=== PATIENT | female | born 1990 | race Caucasian/White ===

== ENCOUNTER → 2019-07-14 14:16 | Outpatient (CLI) | payer OTHER, SELFPAY ==
[2019-07-14 15:43] LABS: Absolute Lymphocyte Count 1.22 X10^3/uL (0.83-4.51); Absolute Neutrophil Count 4.3 X10^3/uL (2.0-7.7); Basophil# 0.03 X10^3/uL; Basophil% 0.5 % (0-1); Eosinophil# 0.04 X10^3/uL; Eosinophils% 0.7 % (0-5); Hematocrit 40.7 % (37-47); Hemoglobin 13.3 g/dL (12.0-15.0); Lymphocyte # 1.22 X10^3/ul (4.0); Lymphocyte % 20.1 % (19-41); Mean Corp Hgb Conc 32.7 g/dL (32-36); Mean Corpuscular Hgb 29.9 pg (27.0-32.0); Mean Corpuscular Volume 91.5 fL (81-99); Mean Platelet Vol. 8.9 fl (6.2-12.0); Monocyte# 0.39 X10^3/uL; Monocyte% 6.4 % (0-10); NRBC Flagged by Analyzer 0 % (0-5); Neutrophil # 4.34 X10^3/uL (2.7-7.7); Neutrophil % 71.6 % (47-70); Platelet Count 289 K/mm3 (150-450); RBC Distribution Width CV 12.1 % (11.6-14.6); RBC Distribution Width SD 40.3 fl (35.1-43.9); Red Blood Count 4.45 M/mm3 (4.2-5.4); White Blood Count 6.1 K/mm3 (4.4-11.0)
[2019-07-14 16:19] LABS: ALB/GLOB Ratio 1.1 RATIO (0.9-2.4); AST(SGOT) 12 U/L (15-37); Alanine Aminotransfer ALT/SGPT 15 U/L (13-56); Alkaline Phosphatase 59 U/L (45-117); Anion Gap 6 (5-15); BUN 13 mg/dL (7-18); BUN/Creat Ratio 15.3 RATIO (10-20); Calcium,Total 9.2 mg/dL (8.5-10.1); Chloride 107 mmol/L (98-107); Creatinine, Serum 0.85 mg/dL (0.55-1.02); EST Glomerular Filtration Rate 85 mL/min (>60); Est Glom Filt Rate - Afr Amer 103 mL/min (>60); Globulin 3.5 g/dL (2.2-4.2); Glucose 101 mg/dL (74-106); Potassium 3.6 mmol/L (3.5-5.1); Protein, Total 7.5 g/dL (6.4-8.2); Sodium Level 142 mmol/L (136-145)
== END ==
PROVIDERS: Family Provider Family Medicine; PCP Family Medicine; Referring Provider Family Medicine; Visit Provider Family Medicine
DX: Z01.818 Encounter for other preprocedural examination (principal)
CPT/HCPCS: 36415; 80053; 85025

== ENCOUNTER 2019-07-30 11:29 | Day surgery (SDC) | payer OTHER, SELFPAY ==
[2019-07-30 12:02] VITALS: BP 122/71; PULSE 101; RESP 16; TEMP 37.8; O2SAT 100; BMI 24.3
[2019-07-30] MEDS: Lactated Ringers 1,000 ML 100 ML IV ×2 (12:05→13:45)
[2019-07-30 12:07] LABS: Internal QC Validated? YES +Cl - CLEAR BKGD; Pregnancy, Urine Negative Negative
[2019-07-30] MEDS: Cefazolin 2 GM in 0.9% Normal Saline 100 ML IV (12:21)
--- NOTE | 2019-07-30 13:00 | BUN_PTH ---
PATIENT: TASIA ALONZO LOC: [facility] [place] U#:[id number] AGE/SX: 28/F ROOM: RE07/30/[address]: Dr. Erick La DPM : 1990 BED: DIS: 07/30/2019 SPEC #: [id number] RECD: 07/30/19 15:02 STATUS: JESUS ALBERTO SINGH #: [id number] JAY: 07/30/19 13:[address]: Erick La DEPT: SURGICAL PATHOLOGY RECD BY: Keenan Aranda ENTERED: 08/02/19 11:02 SP TYPE: BUNION OTHR DR: MD Dr. Tashi Puckett MD Tissues: Bony tissue, NOS Procedures: Decalcification bone/plaque Surgery Specimen Level III HEADER OPERATION: Bunionectomy first metatarsal cuneiform Lapidus arthrodesis PRE-OP DIAGNOSIS: Hallus valgus bunion TISSUE SUBMITTED: Left foot bunion MICROSCOPIC DIAGNOSIS Left foot bunion: A piece of bone with reactive changes, clinically bunion. SJ:aimee 08/05/19 MICROSCOPIC DESCRIPTION Slides are reviewed. GROSS DESCRIPTION Received in fixative is one container labeled with the patient's name and designated left foot bunion. The specimen consists of a discoid fragment of arana-yellow bone measuring 2.2 x 1.7 x 0.3 cm. The specimen is submitted in its entirety in one cassette after decalcification. / AM:aimee 08/02/19 TC:5 CPT: 49782,30877
--- NOTE | 2019-07-30 13:00 | RAD_ITS ---
STUDY: X-RAY - LEFT FOOT CLINICAL: Female, 28 years old. BUNIONECTOMY, 1ST METATARSAL CUNEIFORM LAPIDUS ARTHRODESIS TECHNIQUE: 3 intraoperative fluoroscopic view(s) of the foot. COMPARISON: None. FINDINGS: 3 images of the midfoot shows cortical plate-screw construct of the proximal one third first metatarsal bone and the first cuneiform with several of the long threaded screws crossing the first cuneiform and terminating within the second cuneiform. A small portion of the cortex and medullary space on the medial side of the head of the first metatarsal bone has been surgically resected. RAD/Foot min 3 Views IMPRESSION: Partial surgical resection of the medial side first metatarsal bone Electronically Signed: Alex Welsh MD at 17:35 EST , Service support ,
[2019-07-30] MEDS: Bupivacaine Mpf 0.5% 30 ML VIAL (14:19)
--- NOTE | 2019-07-30 14:30 | DCINST_ITS ---
Discharge Diet: Light diet - advance as tolerated Discharge Activity: May not drive while taking narcotic pain medications., Use Crutches Weight Bearing Status: No weight bearing - No weightbearing on left foot Keep extremity elevated above heart level: Left Leg - Keep left foot elevated for at least 50 minutes of every hour Call your doctor if your incision/area has: Continuous Slow Oozing, Sudden Increased Bleeding, Foul Smelling Discharge Call your doctor if you observe: Fever of 101 or Higher, Shortness of breath, Chest pain, Increased palpitations (irregular heartbeat), Calf discomfort, Uncontrolled pain Cleanse incision/area with: Do not get Incision Wet, Keep Dressing Clean & Dry Allergies/Adverse Reactions: Allergies No Known Allergies Allergy (Verified 07/23/19 13:09) Medications to take at Discharge Ibuprofen 400 mg PO Q6H PRN PRN #40 tab 07/30/19 Oxycodone HCl/Acetaminophen [Percocet 5-325 mg Tablet] 1 - 2 each PO Q6H PRN PRN 3 Days #30 tablet 07/30/19 The following prescriptions were given: Ibuprofen 400 mg PO Q6H PRN PRN #40 tab PRN Reason: Pain Score 1-10/10 Transmission Status: Pending to [facility] Oxycodone HCl/Acetaminophen [Percocet 5-325 mg Tablet] 1 - 2 each PO Q6H PRN PRN 3 Days #30 tablet PRN Reason: Pain Score 1-10/10 Transmission Status: Received by [facility] Primary Care Physician: Doug Duarte MD [Primary Care Provider] - Test Results: Test results from this visit will be discussed in further detail at your follow- up appointment, if applicable. Please Follow Up With: Erick La DPM - Call Dr. La if needed: [phone] (cell) When: next week, sooner if needed
[2019-07-30 14:31] VITALS: BP 122/71; BP 130/64; PULSE 130; RESP 18; TEMP 37.1; O2SAT 99
--- NOTE | 2019-07-30 14:31 | OP.PCM_ITS ---
Report of Operation Date of Procedure: 07/30/19 Pre-Operative Diagnosis: Hallux valgus bunion left foot Post-Operative Diagnosis: Same Surgery/Procedure Performed:: 1st metatarsal cuneiform arthodesis bunionectomy, left foot manager action: yes - Dr. Bridger Harrison Type of Anesthesia:: General, Local Specimen's removed: Bunion from left foot sent to pathology Estimated Blood Loss (mL): 1mL Description of Procedure: Indications: This is a 28 year old female with right hallux valgus bunion deformity, 1st and 2nd toes rubbing and causing callus formation. She relates she is not able to get into the [employer] due to this. She elected to under go surgical intervention - 1st metatarsal cuneiform lapidus arthrodesis bunionectomy. This was discussed with her in great detail, reviewed the procedures, as well as the rationale of the procedures with her in great detail. We discussed and reviewed the possible benefits vs risks/potential complication s. The estimated healing/recovery time and protocol were reviewed with her in detail. Reviewed the goals and the expectations. He expressed understanding and agreement and elected to proceed forward with surgical intervention as noted above. The consent forms were reviewed with her and she freely signed them. All of her questions were answered. No guarantees were given or implied. She was cleared from medical standpoint to proceed with surgery. Operative Procedure: The patient was brought back into the operating room and was placed on the operating table in the supine position. Patient was carefully secured to the operating room table with a safety belt around her waist. A time out was performed and the patient was properly identified and the surgical plan was confirmed. The patient received IV antibiotic prophylaxis - 2g of Ancef. The patient received general anesthesia per the anesthesiologist. A well padded pneumatic tourniquet was applied around her left ankle. The left foot was s crubbed, prepped, and draped in the usual aseptic fashion. Attention was directed to the left foot, there was noted to be significant hallux valgus bunion w/ instability of the 1st ray, with 1st toe deviated into 2nd toe with some callus formation to the medial 2nd toe. The left foot was elevated for 3 minutes and the left ankle pneumatic tourniquet was inflated to 250mmHg. A total of 10 mL of 5% Bupivacaine plain was given as a lock block around the surgical site. A linear longitudinal skin incision was medially along the medial 1st metatarsal cuneiform joint as well as overlying the 1st metatarsal phalangeal joint. This was done using a 15 blade. Careful dissection was completed down to the capsule of the 1st metatarsal cuneiform joint, and it was incised using a 15 blade and partially reflected exposing the joint surfaces. All cartilage from the 1st metatarsal cuneiform joint surfaces (posterior aspect of the base of the 1st metatarsal and the anterior aspect of the medial cuneiform) were debrided away and was removed down to bleeding bone. This was done with a curette as well as a powered rasp and saw, being sure not to cause osteonecrosis. The site was flushed out with copious amounts of normal saline solution. The surfaces were fenestrated using a powered drill to aid fusion. There was noted to be significant contracture of the lateral 1st metatarsal phalangeal joint as well as the adductor hallucis tendon which was preventing proper reduction of the deformity. Therefore a small skin incision was overlying the dorsal lateral 1st metatarsal phalangeal joint. Dissection was completed down to the lateral capsule and adductor hallucis tendon which were released using a 15 blade. The 1st metatarsal was reduced into normal position. The site was fixated use rigid open reduction internal fixation, using 1 Arthrex plantar plate, using a total of 4 locking screws and 1 nonlocking compression screw across the fusion site. There was very good compression and bone to bone contract with the prepped fusion site, in good alignment. The fusion site was rigid and very stable. This was checked and confirmed with intraoperative fluoroscopy. There was noted to be a residual medial and dorsal eminence to the 1st metatarsal head. Careful dissection was completed down to the 1st metatarsal phalangeal joint capsule and it was incised, it was partially reflected. The med ial eminence was resected using a powered sagittal saw, the resected bone was sent to pathology. There was very tight contracture adductor hallucis tendon which was preventing full reduction of deformity. Therefore the adductor hallucis cojoined tendon was released using a 15 blade. The hallux was now in rectus position. There was was now normal range of motion to the 1st metatarsal phalangeal joint. There was smooth normal gliding range of motion of the 1st metatarsal phalangeal joint at this time with normal alignment. The joint was in good alignment. The surgical site was flushed out with copious amounts of normal saline solution. Tissues were healthy and viable at this time. The subcutaneous tissue layers were reapproximated using 3-0 Vicryl and the skin was reapproximated using 4-0 Monocryl. Cavailon was painted to the edges of the sutured skin incision and steristrips were applied across the sutured skin incision. An additional 17 mL of a 0.5% Bupivacaine plain was given as a lock block around the surgical site for further pain control. The pneumatic tourniquet was deflated at 100 minutes, there was immediate return of warmth and perfusion to the foot and to all toes on the foot with normal temperature gradient and CFT < 2 seconds to all toes once the tourniquet was deflated. A dressing was applied which consisted of Betadine soaked adaptic, 4x4 gauze, Kerlix, and an del bandage. Of note, all vital structures including all vital neurovascular and tendon structures were properly identified, protected, and retracted as necessary throughout the above operative procedures. The anterior tibial tendon was left intact. The patient tolerated the above operative procedures well at the anesthesia well with no complication. The patient was transported from the operating room to the recovery room with vital signs stable and in good condition. Post operative orders were placed. Post operative instructions were reviewed with her and her family who was with her. No weightbearing left foot, keep foot elevated for at least 50 minutes of every hour, keep dressing and splint clean, dry and intact. Prescription for Percocet and Ibuprofen given. Post operative xrays were obtained in the recovery room (DP, Oblique, and lateral foot) - there was again noted to be 1st metatarsal cuneiform arthrodesis bunionectomy in good position, with joint surfaces in good alignment and good bone to bone contract with intact hardware; no acute problems or complications seen. Patient to follow up with me in office within 1 week, sooner if needed. Grafts/Implants Used: Arthrex plantar lapidus plate and screws - Complications None
[2019-07-30 14:45] VITALS: BP 120/74; BP 122/71; PULSE 115; RESP 18; O2SAT 100
--- NOTE | 2019-07-30 14:49 | RAD_ITS ---
STUDY: X-RAY - LEFT FOOT CLINICAL: Female, 28 years old. Post op left foot. Left bunionectomy, 1st metatarsal cuneiform lapidus arthrodeses. TECHNIQUE: 3 view(s) of the foot. COMPARISON: None. FINDINGS: Medial surface cortical plate-screw construct of the proximal one third aspect of the first metatarsal bone and first cuneiform noted without demonstrated complications. A long threaded screw traverses the first cuneiform and terminates in the mid aspect of the second cuneiform. Expected postoperative gas is seen around the first digit. A small portion of the medial side of the first metatarsal head has been surgically resected compatible with recent bunionectomy. Normal talus, calcaneus, and tarsal bones. Normal visualized subtalar, talonavicular, calcaneocuboid, tarsal and tarsometatarsal articulations. Normal second through fifth metatarsophalangeal joints. Normal interphalangeal joints and phalanges of the lesser toes. RAD/Foot min 3 Views IMPRESSION: Status post first metatarsal bunionectomy and cortical plate screw fixation across the first TMT articulation Electronically Signed: Alex Welsh MD at 17:46 EST , Service support ,
[2019-07-30 15:00] VITALS: BP 120/83; BP 122/71; PULSE 105; RESP 18; TEMP 36.9; O2SAT 100
[2019-07-30 15:49] VITALS: BP 115/77; BP 122/71; PULSE 106; RESP 16; TEMP 37.9; O2SAT 99
== END 2019-07-30 15:52 | disposition home or self-care (01) ==
LOC: SDC 11:30 → AC 11:32
PROVIDERS: Anesthesiology; Family Provider Pediatrics; PCP Family Medicine; Referring Provider Podiatrist; Visit Provider Podiatrist
PROC: (CPT 28292; principal; 2019-07-30 12:45)
DX: M20.12 Hallux valgus (acquired), left foot (principal); M21.612 Bunion of left foot
CPT/HCPCS: 01480; 28296; 28737; 73630; 76000; 81025; 88304; 88311; C1713; J7120; J2405

== ENCOUNTER 2019-11-08 17:30 | Outpatient (RCR) | payer OTHER, SELFPAY ==
--- NOTE | 2019-09-22 12:18 | HP.PTEVAL ---
Patient's Visit Information TASIA ALONZO is a 28 year old F referred to Physical Therapy by Erick La DPM with a diagnosis of LEFT S/P 1ST METACARPEL CUNEIFORM ARTHRODESIS BUNIONECTOMY. Date of Evaluation: 09/20/19 Physical Therapist: Ross Zelaya, PT, Cert MDT, OCS - Visit Plan Frequency: 2x /Week Duration: 4 Weeks Plan: PT INTERVENTION PROM/AROM 1ST METACARPEL,FLEXABLITY CALF ,STICK CALF ,STRENGTHENING ANKLE /1ST METECARPAL.,PROPRIOCEPTION - Subjective Subjective: This 28 y/o female presenst to physical therapy for left s/p 1st metatarsal cuneiform arthrodesis buniectomy on 07/30/[address] La at [facility]. Patient intially was NWB with Knee scooter and/or crutches for 6weeks. Then ambulated with cam boot ,progressed to WBAT with shoe 10 days go,and start PT. Patient stated end of day some swelling in foot. Patient reports difficulty with desending stairs,extended walking and standing affects ADLS' ,housework tasks. But currently patient is being home working. Patient denies parathesia/tingling. Patient surgery affects QOL. SOCAIL: single ,lives with parents. 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 EDEMA: metatarsel heads 22 cm. GAIT: reciprocal pattern with decrease stance time with decrease heel strike toe off durning gait cycle. PROPRIOCEPTION: poor. AROM ANKLE: dorsiflexion -5 degrees for 0,planterflexion 60 degrees ,inversion 30 degrees,eversion 0 degrees. GREAT TOE: MCP flexion 0 degress ,flexion 5 degrees. MMT: dorsiflexion 4/5,planterflexion 4-/5,eversion 4-/5,inversion 4-/5,GTE 3+/5. FLEXABLITY: G-S MOD TIGHT - Goals Goal 1:: Independant with HEP. Goal Time Frame: 4-6 Weeks Goal 2:: Normailize gait pattern Goal Time Frame: 4-6 Weeks Goal 3:: Improve proprioception symtrical left = right to improve gait. Goal Time Frame: 4-6 Weeks Goal 4:: Patient to improve AROM left ankle WFL and 1ST metacarpel ROM by 5-10 degrees to improve gait. Goal Time Frame: 4-6 Weeks Goal 5:: Patient to improve LFES SCORE by 10 points or> to improve QOL. Goal Time Frame: 4-6 Weeks - Rehabilitation Potential Physical Therapy Diagnosis: This patient underwent s/p surgery arthrodesis of 1st metcarpel cueiform with decrease ROM,strength impairs gait and proproprioception thus benifit from skilled PT . Rehabilitation Potential: Good - Anticipated Interventions Patient/Client Instruction: Educate patient on: Condition, Plan of Care For the Purpose of:: To decrease pain, To increase ROM, To improve muscle performance and motor function, To improve ability to perform ADL's, To increase tolerance to activity/condition/position, To improve performance and independence with ADL's, To improve health of tissue, To decrease soft tissue restriction, To increase flexibility/ROM, To improve ability to perform tasks related to life management Therapeutic Exercise to Include: Strength training, Balance training, Flexibilty training, Passive ROM, Active ROM Comment: ANKLE ,1ST MTPJ For the Purpose of:: To decrease pain, To increase ROM, To improve muscle performance and motor function, To improve ability to perform ADL's, To improve gait and locomotor functions, To improve health of tissue, To decrease soft tissue restriction, To increase flexibility/ROM, To improve balance, To improve ability to perform tasks related to life management Manual Therapy Techniques to Include: Soft tissue mobilization Comment: STICK CALF For the Purpose of:: To increase ROM, To improve nutrient delivery to tissue, To increase oxygenation perfusion, To improve health of tissue, To decrease soft tissue restriction, To increase flexibility/ROM Thank you for the opportunity to evaluate your patient. For Medicare and Medicare HMO plans, please review the plan of care and approve it. It will need to be FAXED BACK to us at [phone] for Medicare purposes. For Medicare only, by signing this I certify the plan of care. Please let me know if there are questions or concerns regarding this plan of care. Physician Signature: Date:
--- NOTE | 2020-03-22 09:02 | HP.PT.NRP ---
TASIA ALONZO was seen in my office for initial evaluation on 09/20/19. The following Plan of Care was established for this patient: Initial Frequency: 2x /Week Initial Duration: 4 Weeks Patient/Client Instruction: Educate patient on: Condition, Plan of Care For the Purpose of:: To decrease pain, To increase ROM, To improve muscle performance and motor function, To improve ability to perform ADL's, To increase tolerance to activity/condition/position, To improve performance and independence with ADL's, To improve health of tissue, To decrease soft tissue restriction, To increase flexibility/ROM, To improve ability to perform tasks related to life management Therapeutic Exercise to Include: Strength training, Balance training, Flexibilty training, Passive ROM, Active ROM For the Purpose of:: To decrease pain, To increase ROM, To improve muscle performance and motor function, To improve ability to perform ADL's, To improve gait and locomotor functions, To improve health of tissue, To decrease soft tissue restriction, To increase flexibility/ROM, To improve balance, To improve ability to perform tasks related to life management Manual Therapy Techniques to Include: Soft tissue mobilization Comment: STICK CALF For the Purpose of:: To increase ROM, To improve nutrient delivery to tissue, To increase oxygenation perfusion, To improve health of tissue, To decrease soft tissue restriction, To increase flexibility/ROM This patient was last seen in our office . Pertinent comments regarding their Physical therapy will appear below: Patient seen for PT for 1st metatarsel surgery with patient doing well gradually return to running. At this point I will be discontinuing this patient from physical therapy. I would be happy to see this patient again in the future if found appropriate by the physician. Thank you! Ross Zelaya, PT, Cert MDT, OCS
== END 2019-11-08 19:00 | disposition home or self-care (01) ==
LOC: PT 17:30
PROVIDERS: PCP Family Medicine; Referring Provider Podiatrist; Visit Provider Podiatrist
DX: Z98.890 Other specified postprocedural states (principal)
CPT/HCPCS: 97110; 97161

== ENCOUNTER → 2020-02-14 | Outpatient (CLI) | payer OTHER, SELFPAY ==
[2020-02-14 15:33] LABS: Absolute Lymphocyte Count 1.84 X10^3/uL (0.83-4.51); Absolute Neutrophil Count 3.5 X10^3/uL (2.0-7.7); Basophil# 0.03 X10^3/uL; Basophil% 0.5 % (0-1); Eosinophil# 0.09 X10^3/uL; Eosinophils% 1.5 % (0-5); Hematocrit 39.5 % (37-47); Hemoglobin 12.4 g/dL (12.0-15.0); Lymphocyte # 1.84 X10^3/ul (4.0); Lymphocyte % 30.7 % (19-41); Mean Corp Hgb Conc 31.4 g/dL (32-36); Mean Corpuscular Hgb 29.6 pg (27.0-32.0); Mean Corpuscular Volume 94.3 fL (81-99); Mean Platelet Vol. 9.9 fl (6.2-12.0); Monocyte# 0.56 X10^3/uL; Monocyte% 9.3 % (0-10); NRBC Flagged by Analyzer 0 % (0-5); Neutrophil # 3.45 X10^3/uL (2.7-7.7); Neutrophil % 57.5 % (47-70); Platelet Count 270 K/mm3 (150-450); RBC Distribution Width CV 12.5 % (11.6-14.6); RBC Distribution Width SD 43.8 fl (35.1-43.9); Red Blood Count 4.19 M/mm3 (4.2-5.4)
[2020-02-14 15:56] LABS: ALB/GLOB Ratio 1.1 RATIO (0.9-2.4); AST(SGOT) 13 U/L (15-37); Alanine Aminotransfer ALT/SGPT 17 U/L (13-56); Albumin, Serum 4.1 g/dL (3.2-5.0); Alkaline Phosphatase 59 U/L (45-117); Anion Gap 7 (5-15); BUN 12 mg/dL (7-18); BUN/Creat Ratio 16.7 RATIO (10-20); Chloride 104 mmol/L (98-107); Creatinine, Serum 0.72 mg/dL (0.55-1.02); EST Glomerular Filtration Rate 103 mL/min (>60); Est Glom Filt Rate - Afr Amer 124 mL/min (>60); Globulin 3.6 g/dL (2.2-4.2); Glucose 88 mg/dL (74-106); Potassium 3.5 mmol/L (3.5-5.1); Protein, Total 7.7 g/dL (6.4-8.2); Sodium Level 138 mmol/L (136-145)
== END | disposition home or self-care (01) ==
LOC: MFPLAB 11:43
PROVIDERS: PCP Family Medicine; Referring Provider Family Medicine; Visit Provider Family Medicine
DX: Z01.818 Encounter for other preprocedural examination (principal)
CPT/HCPCS: 36415; 80053; 85025

== ENCOUNTER 2020-02-18 05:54 | Day surgery (SDC) | payer OTHER, SELFPAY ==
[2020-02-18] VITALS (9 sets, daily range): BP systolic 97–123; BP diastolic 60–71; PULSE 73–98; RESP 16; TEMP 36.8–37.4; O2SAT 94–98; BMI 23.9
--- NOTE | 2020-02-18 | BUN_PTH ---
PATIENT: TASIA ALONZO LOC: [facility] [place] U#:[id number] AGE/SX: 29/F ROOM: RE02/18/[address]: Dr. Erick La DPM : 1990 BED: DIS: 02/18/2020 SPEC #: [id number] RECD: 02/18/20 12:10 STATUS: JESUS ALBERTO RETessie #: [id number] JAY: 02/18/20 00:[address]: Erick La DEPT: SURGICAL PATHOLOGY RECD BY: Kervin Marcelino ENTERED: 02/18/20 12:11 SP TYPE: BUNION OTHR DR: Dr. Braydon Duarte MD Tissues: Bony tissue, NOS Procedures: Decalcification bone/plaque Surgery Specimen Level III HEADER OPERATION: First metatarsal cuneiform arthrodesis bunionectomy PRE-OP DIAGNOSIS: Hallux valgus bunion TISSUE SUBMITTED: Right foot bunion MICROSCOPIC DIAGNOSIS Right foot bunion, excision: Fragments of hyaline cartilage and bone with reactive change. AM:aimee 02/23/20 MICROSCOPIC DESCRIPTION Slides are reviewed. GROSS DESCRIPTION Received in fixative is one container labeled with the patient's name and designated right foot bunion. The specimen consists of multiple pieces of bone that in aggregate measure 2.5 x 2.5 x 0.5 cm. The entire specimen is submitted in two cassettes after decalcification. / SJ:aimee 02/18/20 TC: 5 CPT: 82608, 50861
[2020-02-18] MEDS: Lactated Ringers 1,000 ML 100 ML IV (06:29)
[2020-02-18 06:31] LABS: Internal QC Validated? YES +Cl - CLEAR BKGD; Pregnancy, Urine Negative Negative
--- NOTE | 2020-02-18 07:00 | RAD_ITS ---
STUDY: X-RAY - RIGHT FOOT CLINICAL: Female, 29 years old. 1ST METATARSAL BUNIONECTOMY IN OR TECHNIQUE: 3 view(s) of the foot. COMPARISON: None. FINDINGS: 2:34 minutes of fluoroscopy of the right foot was utilized operating room and 3 images are limited for interpretation. RAD/Foot 2 Views IMPRESSION: Fluoroscopy during surgery. Electronically Signed: Ismael Mazariegos MD at 10:33 EDT Tel , Service support ,
--- NOTE | 2020-02-18 07:27 | PCM.DC.POD ---
Discharge Diet: Light diet - advance as tolerated Discharge Activity: May Not Drive, Use Crutches Weight Bearing Status: No weight bearing - No weightbearing right foot Keep extremity elevated above heart level: Right Leg - Keep right foot elevated for at least 50 minutes of every hour Call your doctor if your incision/area has: Continuous Slow Oozing, Sudden Increased Bleeding, Foul Smelling Discharge Call your doctor if you observe: Fever of 101 or Higher, Shortness of breath, Chest pain, Calf discomfort, Uncontrolled pain Cleanse incision/area with: Do not get Incision Wet, Keep Dressing Clean & Dry Allergies/Adverse Reactions: Allergies No Known Allergies Allergy (Verified 02/18/20 06:08) Medications to take at Discharge Ibuprofen 400 mg PO Q6H PRN PRN 4 Days #40 tab 02/18/20 Oxycodone HCl/Acetaminophen [Percocet 5-325 mg Tablet] 1 - 2 ea PO Q6H PRN PRN 4 Days #30 tab 02/18/20 The following prescriptions were given: Ibuprofen 400 mg PO Q6H PRN PRN 4 Days #40 tab PRN Reason: Pain Score 1-10/10 Transmission Status: Received by [facility] Oxycodone HCl/Acetaminophen [Percocet 5-325 mg Tablet] 1 - 2 ea PO Q6H PRN PRN 4 Days #30 tab PRN Reason: Pain Score 4-10/10 Transmission Status: Received by [facility] Primary Care Physician: Doug Duarte MD [Primary Care Provider] - Test Results: Test results from this visit will be discussed in further detail at your follow-up appointment, if applicable. Please Follow Up With: Erick La DPM When: 1 week, sooner if needed
[2020-02-18] MEDS: Cefazolin 2 GM in 0.9% Normal Saline 100 ML IV (07:30)
[2020-02-18] MEDS: Bupivacaine Mpf 0.5% 30 ML VIAL (10:03)
--- NOTE | 2020-02-18 10:11 | RAD_ITS ---
STUDY: X-RAY - RIGHT FOOT CLINICAL: Female, 29 years old. POST OP, 1ST METATARSAL CUNEIFORM ARTHRODESIS BUNIONECTOMY TECHNIQUE: 3 view(s) of the foot. COMPARISON: None. FINDINGS: Normal talus, calcaneus, and tarsal bones. Normal visualized subtalar, talonavicular, calcaneocuboid, tarsal and tarsometatarsal articulations. Status post first tarsometatarsal joint arthrodesis with a volar plate and screws. Normal metatarsi. Normal metatarsophalangeal joint of the great toe. Normal tibial and fibular sesamoid bones. Normal interphalangeal joint of the great toe. Normal phalanges of the great toe. Normal second through fifth metatarsophalangeal joints. Normal interphalangeal joints and phalanges of the lesser toes. The soft tissue structures are unremarkable. RAD/Foot min 3 Views IMPRESSION: Status post first tarsometatarsal joint arthrodesis. Electronically Signed: Ismael Mazariegos MD at 10:38 EDT Tel , Service support ,
--- NOTE | 2020-02-18 10:13 | PCM.OPRPT ---
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 Arleen Cook Type of Anesthesia:: General, Local Specimen's removed: Bunion from right foot sent to pathology Description of Procedure: Indications: This is a 29 year old female with right hallux valgus bunion deformity on the right foot. She relates she is not able to get into the [employer] due to this. She underwent left hallux valgus bunion correction June 2019 and doing very well, and she relates she is very happy with it. She elected to under go surgical intervention on the right foot now - 1st metatarsal cuneiform lapidus arthrodesis bunionectomy. This was discussed with her in great detail, reviewed the procedures, as well as the rationale of the procedures with her in great detail. We discussed and reviewed the possible benefits vs risks/potential complications. The estimated healing/recovery time and protocol were reviewed with her in detail. Reviewed the goals and the expectations. He expressed understanding and agreement and elected to proceed forward with surgical intervention as noted above. The consent forms were reviewed with her and she freely signed them. All of her questions were answered. No guarantees were given or implied. She was cleared from medical standpoint to proceed with surgery. Operative Procedure: The patient was brought back into the operating room and was placed on the operating table in the supine position. Patient was carefully secured to the operating room table with a safety belt around her waist. A time out was performed and the patient was properly identified and the surgical plan was confirmed. The patient received IV antibiotic prophylaxis - 2g of Ancef. The patient received general anesthesia per the anesthesiologist. A well padded pneumatic tourniquet was applied around her right ankle. The right foot was scrubbed, prepped, and draped in the usual aseptic fashion. Attention was directed to the right foot, there was noted to be significant hallux valgus bunion w/ instability of the 1st ray, with 1st toe deviated into 2nd toe. The right foot was elevated for 3 minutes and the ankle pneumatic tourniquet was inflated to 250mmHg. A total of 10 mL of 5% Bupivacaine plain was given as a local block around the surgical site. A linear longitudinal skin incision was medially along the medial 1st metatarsal cuneiform joint as well as overlying the 1st metatarsal phalangeal joint. This was done using a 15 blade. Careful dissection was completed down to the capsule of the 1st metatarsal cuneiform joint, and it was incised using a 15 blade and partially reflected exposing the joint surfaces. All cartilage from the 1st metatarsal cuneiform joint surfaces (posterior aspect of the base of the 1st metatarsal and the anterior aspect of the medial cuneiform) were debrided away and was removed down to bleeding bone. This was done with a curette as well as a powered rasp and saw, being sure not to cause osteonecrosis. The site was flushed out with copious amounts of normal saline solution. The surfaces were fenestrated using a powered drill to aid fusion. There was noted to be significant contracture of the lateral 1st metatarsal phalangeal joint as well as the adductor hallucis tendon which was preventing proper reduction of the deformity. Therefore a small skin incision was overlying the dorsal lateral 1st metatarsal phalangeal joint. Dissection was completed down to the lateral capsule and adductor hallucis tendon which were released using a 15 blade. The 1st metatarsal was reduced into normal position. The site was fixated use rigid open reduction internal fixation, using 1 Arthrex cannulated FT compression screw as well as 1 Arthrex plantar plate, using a total of 4 locking screws across the fusion site. There was very good compression and bone to bone contract with the prepped fusion site, in good alignment. The fusion site was rigid and very stable. This was checked and confirmed with intraoperative fluoroscopy. There was noted to be a residual medial and dorsal eminence to the 1st metatarsal head. Careful dissection was completed down to the 1st metatarsal phalangeal joint capsule and it was incised, it was partially reflected. The medial eminence was resected using a powered sagittal saw, the resected bone was sent to pathology. There was very tight contracture adductor hallucis tendon which was preventing full reduction of deformity. Therefore the adductor hallucis cojoined tendon was released using a 15 blade. The hallux was now in rectus position. There was was now normal range of motion to the 1st metatarsal phalangeal joint. There was smooth normal gliding range of motion of the 1st metatarsal phalangeal joint at this time with normal alignment. The joint was in good alignment. The surgical site was flushed out with copious amounts of normal saline solution. Tissues were healthy and viable at this time. The subcutaneous tissue layers were reapproximated using 3-0 Vicryl and 4-0 Vicryl and the skin was reapproximated using 4-0 Monocryl. Cavailon was painted to the edges of the sutured skin incision and steristrips were applied across the sutured skin incision. An additional 20 mL of a 0.5% Bupivacaine plain was given as a local block around the surgical site for further pain control. The pneumatic tourniquet was deflated at 96 minutes prior to incision closure, there was immediate return of warmth and perfusion to the foot and to all toes on the foot with normal temperature gradient and CFT < 2 seconds to all toes once the tourniquet was deflated. Hemostasis was achieved. A dressing was applied which consisted of Betadine soaked adaptic, 4x4 gauze, Kerlix, and an del bandage. Of note, all vital structures including all vital neurovascular and tendon structures were properly identified, protected, and retracted as necessary throughout the above operative procedures. The anterior tibial tendon was left intact. The patient tolerated the above operative procedures well at the anesthesia well with no complication. The patient was transported from the operating room to the recovery room with vital signs stable and in good condition. Post operative orders were placed. Post operative instructions were reviewed with her and her family who was with her. No weightbearing right foot, keep foot elevated for at least 50 minutes of every hour, keep dressing and splint clean, dry and intact. Prescription for Percocet and Ibuprofen given. Post operative xrays were obtained (DP, Oblique, and lateral foot) - there was again noted to be 1st metatarsal cuneiform arthrodesis bunionectomy in good position, with joint surfaces in good alignment and good bone to bone contract with intact hardware; no acute problems or complications seen. Patient to follow up with me in office within 1 week, sooner if needed.a Grafts/Implants Used: 1 arthrex plantar plate w/ screws - Complications None
== END 2020-02-18 12:59 | disposition home or self-care (01) ==
LOC: SDC 05:54 → AC 05:55
PROVIDERS: Anesthesiology; PCP Family Medicine; Referring Provider Podiatrist; Visit Provider Podiatrist
PROC: (CPT 28296; principal; 2020-02-18 07:15)
DX: M20.11 Hallux valgus (acquired), right foot (principal); M21.611 Bunion of right foot; M20.12 Hallux valgus (acquired), left foot; Z11.59 Encounter for screening for other viral diseases
CPT/HCPCS: 28296; 28297; 73620; 73630; 76000; 81025; 87635; 88304; 88311; 94799; C1713; J7120; J2405; U0003

== ENCOUNTER 2020-06-29 07:00 | Outpatient (RCR) | payer OTHER, SELFPAY ==
[2020-02-18 06:22] VITALS: BMI 23.9
--- NOTE | 2020-04-17 14:52 | HP.PTEVAL_ITS ---
Patient's Visit Information TASIA ALONZO is a 29 year old F referred to Physical Therapy by Dr. Erick La DPM with a diagnosis of S/P 1ST METATARSEL-CUNIFORM ARTHRODESIS BUNIONECTOMY. Date of Evaluation: 04/17/20 Physical Therapist: Ross Zelaya, PT, Cert MDT, OCS - Visit Plan Frequency: 2-3x /Week Duration: 4 Weeks Plan: PT INTERVENTIONS ROM TO 1ST METATARSEL/ IP ,STRENGHENING EX'S ANKLE,PROPRIOCEPTION,FUNCTIONAL STRENGTHENING ,FLEXABLITY G-S - Subjective This 29 y/o female presents to physical therapy right s/p 1st metatarsel - cuneiform arthrodesis bunionectomy with plate on 02/18/[address] La. Patient post surgery had soft dressing and used scooter and NWB RLE 3 weeks ,then on week 4 WBAT with boot cam. Patient gradully weaned boot ,with regular shoe. Seen 04/11 ten recommmeded PT. Patient had prior surgery left foot Jul 30. Patient has minimal pain and denies parathesia/tingling. Patient has some limiations but is unable to run untill for months around Dec working on gradual running program. Patient condition affects QOL. SOCIAL: single. VOCATION: [employer] - Pain Right Foot Pain Intensity (Out of 10): 1 Pain Intensity Range: 10 Comment: great toe - Objective POSTURE: mild pes planus. GAIT: reciprocal gait pattern mild decrease stance time. EDEMA: MILD effusion ,metarsels 23 cm. INSCION: approximate ,mild errythmia. AROM: great toe extensors ,5 degrees from 0 extension,flexion 10 degrees. dorsiflexion 5 degrees from 0 ,planterflexion 65 degrees,inversion 45 degrees,evrsion 10 degrees. MMT: ankle dorsiflexion 4/5,eversion/inversion 4/5,planterflexion 3+/5,great toes extension/flexion 3+/5. PROPRIOCEPTION: 45 SEC SLS. G-S: FLEXABLITY /MINMOD TIGHT - Goals Goal 1:: I with HEP. Goal Time Frame: 4-6 Weeks Goal 2:: Patient to normalize gait pattern with push off of toe flexion and extension Goal Time Frame: 4-6 Weeks Goal 3:: Patient to improve ROM GT flexion and extesnion WFL and aakle dorsiflexion to 5 degrees to improve gait. Goal Time Frame: 4-6 Weeks Goal 4:: Patient to improve strength of ankle 5/5 to improve gait . Goal Time Frame: 4-6 Weeks Goal 5:: Patient to improve LFES score by 5-10 points or > to imp[rove function and QOL. Goal Time Frame: 4-6 Weeks - Rehabilitation Potential Physical Therapy Diagnosis: This patient underwent s/p bunectomy with plate on 02/18/20 with current impairments with ROM great toe,ankle ROM ,strength,edema impairs ability to run and do all function thus benifit from skilled PT Rehabilitation Potential: Good - Anticipated Interventions Patient/Client Instruction: Educate patient on: Condition, Plan of Care For the Purpose of:: To decrease pain, To increase ROM, To improve muscle performance and motor function, To increase tolerance to activity/condition/position, To improve performance and independence with ADL's, To improve ability of physical actions for home/community/work/leisure, To improve gait and locomotor functions, To improve health of tissue, To decrease soft tissue restriction, To increase flexibility/ROM, To improve endurance, To improve balance, To reduce risk of recurrence, To improve ability to perform tasks related to life management Therapeutic Exercise to Include: Strength training, Endurance training, Balance training, Flexibilty training, Gait and locomotor training, Passive ROM, Active ROM Comment: ANKLE ,IST METATRSEL For the Purpose of:: To decrease pain, To increase ROM, To improve muscle performance and motor function, To improve ability to perform ADL's, To increase tolerance to activity/condition/position, To improve ability of physical actions for home/community/work/leisure, To improve health of tissue, To decrease soft tissue restriction, To increase flexibility/ROM, To improve balance, To improve ability to perform tasks related to life management Thank you for the opportunity to evaluate your patient. For Medicare and Medicare HMO plans, please review the plan of care and approve it. It will need to be FAXED BACK to us at [phone] for Medicare purposes. For Medicare only, by signing this I certify the plan of care. Please let me know if there are questions or concerns regarding this plan of care. Physician Signature: Date:
--- NOTE | 2020-06-29 07:29 | HP.PTDCSUM ---
It has been my pleasure to treat TASIA ALONZO referred by Dr. Erick La, DPM, with the diagnosis of S/P 1ST METATARSEL-CUNIFORM ARTHRODESIS BUNIONECTOMY for a total of 20 visit(s). Discharge Date: Please see the following information for a summary of their discharge status. Subjective: Doing well .. been light jogging program Right Foot Pain Intensity (Out of 10): 0 % Improvement: 75 Objective/Function: POSTURE: WFL. GAIT: NORMAL. LIGHT JOGGING: INTERVALS. AROM: AKNLE WFL 5 DEGREES,PF 65 DEGREES,IN 40 DEGREES,EV 5 DEGRRES. MMT: 5/5 GS 4/5 Goal 1:: I with HEP. Goal Progress: Goal Met Goal 2:: Patient to normalize gait pattern with push off of toe flexion and extension Goal Progress: Goal Met Goal 3:: Patient to improve ROM GT flexion and extesnion WFL and aakle dorsiflexion to 5 degrees to improve gait. Goal Progress: Goal Met Goal 4:: Patient to improve strength of ankle 5/5 to improve gait . Goal Progress: Goal Met Goal 5:: Patient to improve LFES score by 5-10 points or > to imp[rove function and QOL. Goal Progress: Goal Met Plan: D/C If there are questions or concerns regarding this patient's physical therapy, please feel free to call me at [phone]. Thank you for the referral of this patient. Sincerely, Ross Zelaya, PT, Cert MDT, OCS
== END 2020-06-29 19:00 | disposition home or self-care (01) ==
LOC: PT 07:00
PROVIDERS: PCP Family Medicine; Referring Provider Podiatrist; Visit Provider Podiatrist
DX: Z98.890 Other specified postprocedural states (principal)
CPT/HCPCS: 97110; 97161

== ENCOUNTER → 2022-01-11 | Outpatient (CLI) | payer OTHER, SELFPAY ==
--- NOTE | 2022-01-11 16:49 | RAD_ITS ---
STUDY: X-RAY - LEFT ANKLE REASON FOR EXAM: Female, 31 years old. Pain for 2 weeks. No known injury. Left foot surgery 3 years ago. TECHNIQUE: 3 view(s) of the ankle. COMPARISON: None. FINDINGS: Normal visualized distal tibia and fibula. Normal medial and lateral malleoli. Normal tibiotalar articulation and ankle mortise. Normal visualized talus and calcaneus. The visualized subtalar, talonavicular, calcaneocuboid and tarsal articulations are normal. There is surgical fusion of the first tarsometatarsal joint. The soft tissue structures are unremarkable. RAD/Ankle min 3 Views IMPRESSION: Normal x-ray examination of the left ankle. Electronically Signed: Ramez Arevalo DO at 23:52 EDT ,
--- NOTE | 2022-01-11 16:49 | RAD_ITS ---
STUDY: X-RAY - LEFT FOOT CLINICAL: Female, 31 years old. Ankle pain for 2 weeks. History of foot surgery 3 years ago. TECHNIQUE: 3 view(s) of the foot. COMPARISON: 07/30/2019 FINDINGS: Normal talus, calcaneus, and tarsal bones. Normal visualized subtalar, talonavicular, calcaneocuboid, tarsal and tarsometatarsal articulations. There is fusion of the first tarsometatarsal joint. The hardware is intact and unchanged. Normal second 2/5 metatarsals Normal metatarsophalangeal joint of the great toe. Normal tibial and fibular sesamoid bones. Normal interphalangeal joint of the great toe. Normal phalanges of the great toe. Normal second through fifth metatarsophalangeal joints. Normal interphalangeal joints and phalanges of the lesser toes. The soft tissue structures are unremarkable. RAD/Foot min 3 Views IMPRESSION: Stable surgical fusion of the first metatarsophalangeal joint disease unchanged from previous study Electronically Signed: Ramez Arevalo DO at 23:55 EDT ,
== END | disposition home or self-care (01) ==
LOC: MTRAD 16:46
PROVIDERS: PCP Family Medicine; Referring Provider Family Medicine; Visit Provider Family Medicine
DX: M25.572 Pain in left ankle and joints of left foot (principal)
CPT/HCPCS: 73610; 73630

== ENCOUNTER → 2024-10-06 | Outpatient (CLI) | payer OTHER, SELFPAY ==
--- NOTE | 2024-10-06 11:44 | RAD_ITS ---
EXAM: Three views of the right foot CLINICAL HISTORY: Pain COMPARISON: None available TECHNIQUE: Three views of the right foot FINDINGS: Postsurgical changes of a plate and screw fixation seen within the proximal 1st metatarsal. No acute displaced fracture or dislocation. 1st MTP joint osteoarthritis. No acute displaced fracture or dislocation. No overlying soft tissue swelling. RAD/Foot min 3 Views IMPRESSION: *Postsurgical changes of a plate and screw fixation within the proximal 1st met atarsal. *No acute displaced fracture or dislocation. Reading Location: [id number]
== END | disposition home or self-care (01) ==
LOC: MTRAD 11:38
PROVIDERS: PCP Family Medicine; Referring Provider Family Medicine; Visit Provider Family Medicine
DX: M79.671 Pain in right foot (principal)
CPT/HCPCS: 73630

== ENCOUNTER → 2024-12-07 | Outpatient (CLI) | payer OTHER, SELFPAY ==
--- NOTE | 2024-12-07 08:59 | MRI_ITS ---
PROCEDURE: LOWER EXT NO JOINT W/WO CONT 12/07/2024 REASON FOR EXAM: MASS LEFT FOOT TECHNIQUE: T1, T2, stir, postcontrast T1 fat-sat, MRI of the left forefoot without and with 10 cc Clariscan intravenous gadolinium-based contrast. Multiplanar and multisequence images were obtained. COMPARISON: None FINDINGS: There is hardware present in the middle and medial cuneiform and proximal 1st metatarsal with associated artifact. 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 There is a moderate joint effusion at the 1st metatarsophalangeal articulation. There is a ganglion which extends from the superolateral aspect of the 1st metatarsophalangeal joint space measuring 0.8 by 0.5 x 0.5 cm, extending into the subcutaneous tissues. There are no associated suspicious postcontrast enhancing components. The sesamoid show normal marrow signal and appear aligned. The flexor and extensor tendons appear intact. The Lisfranc articulation is aligned. There is no significant muscular atrophy. MRI/Lower Ext No Joint W/WO Cont IMPRESSION: There is hardware present in the middle and medial cuneiform and proximal 1st m etatarsal with associated artifact. 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 There is a moderate joint effusion at the 1st metatarsophalangeal articulation. There is a ganglion which extends from the superolateral aspect of the 1st meta tarsophalangeal joint space measuring 0.8 by 0.5 x 0.5 cm, extending into the subcutaneous tissues. Reading Location: [id number]
== END | disposition home or self-care (01) ==
PROVIDERS: PCP Family Medicine; Referring Provider Podiatrist; Visit Provider Podiatrist
DX: M79.9 Soft tissue disorder, unspecified (principal)
CPT/HCPCS: 73720; A9575

== ENCOUNTER → 2024-12-08 | Outpatient (CLI) | payer OTHER, SELFPAY ==
[2024-12-08 10:15] LABS: Absolute Lymphocyte Count 1.41 X10^3/uL (0.83-4.51); Absolute Neutrophil Count 2.9 X10^3/uL (2.0-7.7); Basophil# 0.03 X10^3/uL; Basophil% 0.6 % (0-1); Eosinophil# 0.06 X10^3/uL; Eosinophils% 1.2 % (0-5); Hematocrit 39.6 % (37-47); Hemoglobin 13.3 g/dL (12.0-15.0); Lymphocyte # 1.41 X10^3/ul (0.83-4.51); Lymphocyte % 28.4 % (19-41); Mean Corp Hgb Conc 33.6 g/dL (32-36); Mean Corpuscular Hgb 32.3 pg (27.0-32.0); Mean Corpuscular Volume 96.1 fL (81-99); Mean Platelet Vol. 9.3 fl (6.2-12.0); Monocyte# 0.52 X10^3/uL; Monocyte% 10.5 % (0-10); NRBC Flagged by Analyzer 0 % (0-5); Neutrophil # 2.92 X10^3/uL (2.7-7.7); Neutrophil % 58.7 % (47-70); Platelet Count 201 K/mm3 (150-450); RBC Distribution Width CV 12.3 % (11.6-14.6); RBC Distribution Width SD 43.7 fl (35.1-43.9); Red Blood Count 4.12 M/mm3 (4.2-5.4)
[2024-12-08 11:55] LABS: ALB/GLOB Ratio 1.7 RATIO (0.9-2.4); AST(SGOT) 27 U/L (<=31); Alanine Aminotransfer ALT/SGPT 23 U/L (<=34); Albumin, Serum 4.4 g/dL (3.5-5.0); Alkaline Phosphatase 54 U/L (35-104); Anion Gap 12 (5-15); BUN 10 mg/dL (4-19); BUN/Creat Ratio 15.1 RATIO (10-20); Calcium,Total 9.6 mg/dL (7.6-11.0); Carbon Dioxide 23.2 mmol/L (21.0-32.0); Chloride 101 mmol/L (98-108); Creatinine, Serum 0.69 mg/dL (0.70-1.20); EST Glomerular Filtration Rate 118 (>60); Globulin 2.6 g/dL (2.2-4.2); Glucose 99 mg/dL (70-99); Potassium 3.7 mmol/L (3.3-5.1); Sodium Level 136 mmol/L (133-145)
== END | disposition home or self-care (01) ==
LOC: MFPLAB 08:09
PROVIDERS: PCP Family Medicine; Referring Provider Podiatrist; Visit Provider Podiatrist
DX: R22.42 Localized swelling, mass and lump, left lower limb (principal)
CPT/HCPCS: 36415; 80053; 85025

== ENCOUNTER 2024-12-23 11:23 | Day surgery (SDC) | payer OTHER, SELFPAY ==
[2024-12-23] VITALS (11 sets, daily range): BP systolic 89–119; BP diastolic 60–69; PULSE 45–86; RESP 16–18; TEMP 36.3–36.6; O2SAT 98–100; BMI 21.9
[2024-12-23 11:39] LABS: Internal QC Validated? YES +Cl - CLEAR BKGD; Pregnancy, Urine Negative Negative
[2024-12-23] MEDS: Lactated Ringers 1,000 ML 15 ML IV (11:58)
--- NOTE | 2024-12-23 12:00 | RAD_ITS ---
EXAM: XR Left Foot, 2 Views CLINICAL INDICATION: EXCISION LT FOOT GANGLION CYST TECHNIQUE: Frontal and lateral views of the left foot. COMPARISON: No relevant prior studies available. FINDINGS: BONES/JOINTS: Unremarkable. No acute fracture. No dislocation. SOFT TISSUES: Unremarkable. No radiopaque foreign body. OTHER FINDINGS: A total of 15 images were obtained. Total fluoroscopy time was 53 seconds. Total radiation dose was 7.2223 mGy. RAD/Foot 2 Views IMPRESSION: Fluoroscopic guidance was used intraoperatively. Please refer to the operative note for further details. Reading Location: [id number]
--- NOTE | 2024-12-23 12:00 | RAD_ITS ---
EXAM: XR Left Foot, 2 Views CLINICAL INDICATION: EXCISION LT FOOT GANGLION CYST TECHNIQUE: Frontal and lateral views of the left foot. COMPARISON: No relevant prior studies available. FINDINGS: BONES/JOINTS: Unremarkable. No acute fracture. No dislocation. SOFT TISSUES: Unremarkable. No radiopaque foreign body. OTHER FINDINGS: A total of 15 images were obtained. Total fluoroscopy time was 53 seconds. Total radiation dose was 7.2223 mGy. RAD/Foot 2 Views IMPRESSION: Fluoroscopic guidance was used intraoperatively. Please refer to the operative note for further details. Reading Location: [id number]
--- NOTE | 2024-12-23 12:18 | PCM.PRE.AN2 ---
ASA Classification* ASA Classification ASA Classification: 1 Assessment & Plan Anesthesia* Anesthesia Assessment Anesthesia Assessment: Discussed sedation and/or anesthesia options, risks, benefits, and alternatives with patient/parents/legal guardian/POA. Questions invited. The patient/parents/legal guardian/POA seems to understand and agrees to proceed with anesthesia plan. Reviewed the physical assessment, medical history, allergy history and patient home medications list prior to surgery/procedure/anesthetic and documented any changes. Performed airway and anesthesia risk assessments. Anesthesia Type Anesthesia Type: MAC History Source History Obtained from:: Patient and Chart Anesthesia Focused Assessment* Temperature: 97.6 F Pulse Rate: 86 Blood Pressure: 119/69 Respiratory Rate: 17 Pulse Ox: 100 Oxygen Delivery Method: Room Air Airway Assessment Mouth opens: >3 cm Mallampati Score: II Teeth Condition: Intact Neck Range of motion (ROM): Full ROM Labs Anesthesia Preop lab: CBC WBC 5.0 K/mm3 (4.4-11.0) 12/08/24 08:10 12/08/24 RBC 4.12 M/mm3 (4.2-5.4) L 12/08/24 08:10 12/08/24 Hgb 13.3 g/dL (12.0-15.0) 12/08/24 08:10 12/08/24 Hct 39.6 % (37-47) 12/08/24 08:10 12/08/24 Plt Count 201 K/mm3 (150-450) 12/08/24 08:10 12/08/24 CHEMISTRY Potassium 3.7 mmol/L (3.3-5.1) 12/08/24 08:10 12/08/24 Sodium 136 mmol/L (133-145) 12/08/24 08:10 12/08/24 BUN 10 mg/dL (4-19) 12/08/24 08:10 12/08/24 Creatinine 0.69 mg/dL (0.70-1.20) L 12/08/24 08:10 12/08/24 Glucose 99 mg/dL (70-99) 12/08/24 08:10 12/08/24 COAG Urine Test Negative Negative 12/23/24 11:30 12/23/24 Pre-Assessment Diagnosis/Proposed Procedure Planned Operative Procedure(s): EXCISION OF LEFT FOOT GANGLION CYST/SOFT TISSUES Anesthesia History 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 When Was Last Pacemaker Check QUESTION #4 FULL TEXT: You/Your Family Experience fever (hyperthermia) with Anesthesia Last Oral Intake Last Oral intake: Last Oral Intake NPO since 00:00 12/23/24 11:59 Meds taken in AM with sips of No 12/23/24 11:59 water? Meds patient instructed to take am of surgery PONV PONV - final inspector movement assembly: PONV - final inspector movement assembly Female Yes 12/15/24 08:19 HX of Motion Sickness No 12/15/24 08:19 HX of N/V After Surgery No 12/15/24 08:19 Non-Smoker Yes 12/15/24 08:19 Duration of Surgery greater No 12/15/24 08:19 than 60 minutes Number of Risk Factors 2 12/15/24 08:19 PONV Score Moderate Risk 12/15/24 08:19 Height & Weight Height & Weight: Anesthesia: Height & Weight Height 5 ft 4 in 12/23/24 11:59 Weight: 58 kg 12/23/24 11:59 Body Mass Index (BMI) 21.9 12/23/24 11:59 Respiratory Assessment Respiratory Assessment - final inspector movement assembly: Respiratory Tract Infection Hx - final inspector movement assembly Hx Respiratory Tract Infection No 12/15/24 08:19 STOP Sleep Apnea STOP Sleep Apnea - final inspector movement assembly: STOP Sleep Apnea - final inspector movement assembly Hx Hypertension No 12/15/24 08:19 Hx Sleep Apnea No 12/15/24 08:19 CPAP BIPAP Do you snore loudly (louder No 12/15/24 08:19 than talking or can be heard Do you often feel tired/ No 12/15/24 08:19 fatigued/ sleepy during daytime? Has anyone observed you stop No 12/15/24 08:19 breathing during sleep? STOP Results Negative 12/15/24 08:19 QUESTION #5 FULL TEXT : Do you snore loudly (louder than talking or can be heard through closed doors)? 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 Specify any problems Hx of Preganancy in last 3 No 12/15/24 08:19 Months Nurse Filling Out Transfusion DSCHRIBER 12/15/24 08:19 & Questions: Date: 12/15/24 12/15/24 08:19 Time: 08:20 12/15/24 08:19 Patient unable to answer at this time (ie. confused, unrespo /Reproduction History /Reproductive History - final inspector movement assembly: /Reproductive Hx- final inspector movement assembly Hx Now No 12/15/24 08:19 Gestational Age (in weeks): EDC: Hx Hx Para Hx Section SAB No 12/15/24 08:19 Active Medications Active Medications: Current Medications Generic Name Dose Route Start Last Admin Trade Name Roya PRN Reason Stop Dose Admin Cefazolin Sodium 2 gm/ Sodium 110 mls @ 200 mls/hr 12/23/24 13:00 Chloride IV 12/23/24 13:32 INTRAOP ONE Lactated Ringer's 1,000 mls @ 15 mls/hr 12/23/24 12:00 12/23/24 11:58 IV 15 mls/hr .Q48H GERARD Administration PFSH Medical History Non-smoker Home Medications ?Medication ?Instructions ?Recorded ?Last Taken ?Type multivitamin (Daily Multi-Vitamin 1 tab PO DAILY 12/15/24 12/22/24 History tablet) Allergy/AdvReac Type Severity Reaction Status Date / Time nickel Allergy Intermediate Itching Verified 12/23/24 11:58 Surgical History History of bunionectomy of right great toe History of bunionectomy of left great toe Social History Smoking Status: Never smoker Review of Systems (Anesthesia) ROS Narrative System reviewed and no additional complaints, except as documented.
--- NOTE | 2024-12-23 12:18 | PCM.PRE.AN2 ---
ASA Classification* ASA Classification ASA Classification: 1 Assessment & Plan Anesthesia* Anesthesia Assessment Anesthesia Assessment: Discussed sedation and/or anesthesia options, risks, benefits, and alternatives with patient/parents/legal guardian/POA. Questions invited. The patient/parents/legal guardian/POA seems to understand and agrees to proceed with anesthesia plan. Reviewed the physical assessment, medical history, allergy history and patient home medications list prior to surgery/procedure/anesthetic and documented any changes. Performed airway and anesthesia risk assessments. Anesthesia Type Anesthesia Type: MAC History Source History Obtained from:: Patient and Chart Anesthesia Focused Assessment* Temperature: 97.6 F Pulse Rate: 86 Blood Pressure: 119/69 Respiratory Rate: 17 Pulse Ox: 100 Oxygen Delivery Method: Room Air Airway Assessment Mouth opens: >3 cm Mallampati Score: II Teeth Condition: Intact Neck Range of motion (ROM): Full ROM Labs Anesthesia Preop lab: CBC WBC 5.0 K/mm3 (4.4-11.0) 12/08/24 08:10 12/08/24 RBC 4.12 M/mm3 (4.2-5.4) L 12/08/24 08:10 12/08/24 Hgb 13.3 g/dL (12.0-15.0) 12/08/24 08:10 12/08/24 Hct 39.6 % (37-47) 12/08/24 08:10 12/08/24 Plt Count 201 K/mm3 (150-450) 12/08/24 08:10 12/08/24 CHEMISTRY Potassium 3.7 mmol/L (3.3-5.1) 12/08/24 08:10 12/08/24 Sodium 136 mmol/L (133-145) 12/08/24 08:10 12/08/24 BUN 10 mg/dL (4-19) 12/08/24 08:10 12/08/24 Creatinine 0.69 mg/dL (0.70-1.20) L 12/08/24 08:10 12/08/24 Glucose 99 mg/dL (70-99) 12/08/24 08:10 12/08/24 COAG Urine Test Negative Negative 12/23/24 11:30 12/23/24 Pre-Assessment Diagnosis/Proposed Procedure Planned Operative Procedure(s): EXCISION OF LEFT FOOT GANGLION CYST/SOFT TISSUES Anesthesia History 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 When Was Last Pacemaker Check QUESTION #4 FULL TEXT: You/Your Family Experience fever (hyperthermia) with Anesthesia Last Oral Intake Last Oral intake: Last Oral Intake NPO since 00:00 12/23/24 11:59 Meds taken in AM with sips of No 12/23/24 11:59 water? Meds patient instructed to take am of surgery PONV PONV - asbestos siding installer: PONV - asbestos siding installer Female Yes 12/15/24 08:19 HX of Motion Sickness No 12/15/24 08:19 HX of N/V After Surgery No 12/15/24 08:19 Non-Smoker Yes 12/15/24 08:19 Duration of Surgery greater No 12/15/24 08:19 than 60 minutes Number of Risk Factors 2 12/15/24 08:19 PONV Score Moderate Risk 12/15/24 08:19 Height & Weight Height & Weight: Anesthesia: Height & Weight Height 5 ft 4 in 12/23/24 11:59 Weight: 58 kg 12/23/24 11:59 Body Mass Index (BMI) 21.9 12/23/24 11:59 Respiratory Assessment Respiratory Assessment - asbestos siding installer: Respiratory Tract Infection Hx - asbestos siding installer Hx Respiratory Tract Infection No 12/15/24 08:19 STOP Sleep Apnea STOP Sleep Apnea - asbestos siding installer: STOP Sleep Apnea - asbestos siding installer Hx Hypertension No 12/15/24 08:19 Hx Sleep Apnea No 12/15/24 08:19 CPAP BIPAP Do you snore loudly (louder No 12/15/24 08:19 than talking or can be heard Do you often feel tired/ No 12/15/24 08:19 fatigued/ sleepy during daytime? Has anyone observed you stop No 12/15/24 08:19 breathing during sleep? STOP Results Negative 12/15/24 08:19 QUESTION #5 FULL TEXT : Do you snore loudly (louder than talking or can be heard through closed doors)? 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 Specify any problems Hx of Preganancy in last 3 No 12/15/24 08:19 Months Nurse Filling Out Transfusion DSCHRIBER 12/15/24 08:19 & Questions: Date: 12/15/24 12/15/24 08:19 Time: 08:20 12/15/24 08:19 Patient unable to answer at this time (ie. confused, unrespo /Reproduction History /Reproductive History - asbestos siding installer: /Reproductive Hx- asbestos siding installer Hx Now No 12/15/24 08:19 Gestational Age (in weeks): EDC: Hx Hx Para Hx Section SAB No 12/15/24 08:19 Active Medications Active Medications: Current Medications Generic Name Dose Route Start Last Admin Trade Name Roya PRN Reason Stop Dose Admin Cefazolin Sodium 2 gm/ Sodium 110 mls @ 200 mls/hr 12/23/24 13:00 Chloride IV 12/23/24 13:32 INTRAOP ONE Lactated Ringer's 1,000 mls @ 15 mls/hr 12/23/24 12:00 12/23/24 11:58 IV 15 mls/hr .Q48H GERARD Administration PFSH Medical History Non-smoker Home Medications ?Medication ?Instructions ?Recorded ?Last Taken ?Type multivitamin (Daily Multi-Vitamin 1 tab PO DAILY 12/15/24 12/22/24 History tablet) Allergy/AdvReac Type Severity Reaction Status Date / Time nickel Allergy Intermediate Itching Verified 12/23/24 11:58 Surgical History History of bunionectomy of right great toe History of bunionectomy of left great toe Social History Smoking Status: Never smoker Review of Systems (Anesthesia) ROS Narrative System reviewed and no additional complaints, except as documented.
[2024-12-23] MEDS: Cefazolin 2 GM in 0.9% Normal Saline (100mL Bag) 100 ML IV (13:00)
--- NOTE | 2024-12-23 13:00 | MASS_PTH ---
PATIENT: TASIA ALONZO [place] [facility] [place][id number] AGE/SX: 34/F ROOM: RE12/23/[address]: Dr. Erick La DPM : 1990 BED: DIS: 12/23/2024 SPEC #: [id number] RECD: 12/23/24 14:37 STATUS: JESUS ALBERTO REQ #: [id number] JAY: 12/23/24 13:[address]: Erick La DEPT: SURGICAL PATHOLOGY RECD BY: Porter Hussein ENTERED: 12/23/24 15:36 SP TYPE: Mass OTHR DR: Dr. Braydon Duarte MD Tissues: A - Foot, NOS B - Foot, NOS Procedures: Decalcification bone/plaque Surgery Specimen Level III HEADER OPERATION: Excision of left foot ganglion cyst / soft tissue mass PRE-OP DIAGNOSIS: Ganglion cyst / soft tissue mass of left foot TISSUE SUBMITTED: A- Left foot soft tissue mass, B- Bone first metatarsal phalangeal joint left foot MICROSCOPIC DIAGNOSIS A. Foot, left, soft tissue mass, excision: * Fibroadipose tissue with focal cystic space suggestive of ganglion cyst. * No neoplasia seen. B. Foot, left, bone first metatarsal phalangeal joint, excision: - articular bone with reactive and degenerative change. MICROSCOPIC DESCRIPTION Slides are reviewed. GROSS DESCRIPTION [id number] MR Received in 2 formalin containers labeled with the patient's name and date of . Designated as: A. Left foot soft tissue mass are 2 arana-yellow fibrofatty tissue fragments devoid of orientation, 1.2 x 0.8 x 0.5 cm and 2.9 x 1.4 x 0.7 cm. Sectioning reveals fibrofatty cut surfaces with a possible cyst wall. Entirely submitted in 2 cassettes. B. Bone first metatarsal phalangeal joint left foot are 3 irregular arana-yellow bone fragments one of which is surfaced by articular cartilage, 1.4 x 0.9 x 0.4 cm to 1.8 x 1.5 x 0.2 cm. Vacuum Cleaner Operator sections are submitted in 1 cassette, following decalcification IN 12/24/2024 CPT:[id number]
--- NOTE | 2024-12-23 13:00 | MASS_PTH ---
PATIENT: TASIA ALONZO [place] [facility] [id number] AGE/SX: 34/F ROOM: RE12/23/[address]: Dr. Erick La DPM : 1990 BED: DIS: 12/23/2024 SPEC #: [id number] RECD: 12/23/24 14:37 STATUS: JESUS ALBERTO REQ #: [id number] JAY: 12/23/24 13:[address]: Erick La DEPT: SURGICAL PATHOLOGY RECD BY: Porter Hussein ENTERED: 12/23/24 15:36 SP TYPE: Mass OTHR DR: Dr. Braydon Duarte MD Tissues: A - Foot, NOS B - Foot, NOS Procedures: Decalcification bone/plaque Surgery Specimen Level III HEADER OPERATION: Excision of left foot ganglion cyst / soft tissue mass PRE-OP DIAGNOSIS: Ganglion cyst / soft tissue mass of left foot TISSUE SUBMITTED: A- Left foot soft tissue mass, B- Bone first metatarsal phalangeal joint left foot MICROSCOPIC DIAGNOSIS A. Foot, left, soft tissue mass, excision: * Fibroadipose tissue with focal cystic space suggestive of ganglion cyst. * No neoplasia seen. B. Foot, left, bone first metatarsal phalangeal joint, excision: - articular bone with reactive and degenerative change. MICROSCOPIC DESCRIPTION Slides are reviewed. GROSS DESCRIPTION [id number] MR Received in 2 formalin containers labeled with the patient's name and date of . Designated as: A. Left foot soft tissue mass are 2 arana-yellow fibrofatty tissue fragments devoid of orientation, 1.2 x 0.8 x 0.5 cm and 2.9 x 1.4 x 0.7 cm. Sectioning reveals fibrofatty cut surfaces with a possible cyst wall. Entirely submitted in 2 cassettes. B. Bone first metatarsal phalangeal joint left foot are 3 irregular arana-yellow bone fragments one of which is surfaced by articular cartilage, 1.4 x 0.9 x 0.4 cm to 1.8 x 1.5 x 0.2 cm. Pocket Setter Lockstitch sections are submitted in 1 cassette, following decalcification ND 12/24/2024 CPT:[id number]
[2024-12-23] MEDS: Lidocaine 1% (20 ml mdv) 20 ML Vial (13:12)
[2024-12-23] MEDS: Bupivacaine Mpf 0.5% 30 ML VIAL (14:20)
--- NOTE | 2024-12-23 14:31 | PCM.POST.ANE ---
Anesthesia: Postop Eval I Current Vital Signs Temperature: 97.4 F Pulse Rate: 57 Blood Pressure: 92/60 Respiratory Rate: 16 Pulse Ox: 98 Oxygen Delivery Method: Room Air Assessment Airway patent: Yes Spontaneous unlabored respirations: Yes Mental status: Awake and Calm nausea: No Vomiting: No Anesthesia Complication: No Fluid Hydration Crystalloid volume administer (ml): 900 Total IV fluid infused: 900 Progress Note Anesthesia document: Postop Eval 1 completed: Yes
--- NOTE | 2024-12-23 14:31 | PCM.DC ---
Discharge Instructions Diet Discharge Diet: Light diet - advance as tolerated DC O2, CPAP, BIPAP needs Home O2 Discharge instructions: No Dressing / Incision Discharge Activity: Use Walker and Use Crutches Weight Bearing Status: No weight bearing (No weightbearing left foot) Keep extremity elevated above heart level: Operative Extremity (Keep left foot elevated with pillows for at least 50 minutes of every hour) Dressing / Incision Call your doctor if your incision/area has: Sudden Increased Bleeding and Foul Smelling Discharge Call your doctor if you observe: Fever of 101 or Higher, Shortness of breath, Chest pain, Increased palpitations (irregular heartbeat), Calf discomfort and Uncontrolled pain Change Dressing in: do not change dressing Remove Dressing in: do not remove dressing Cleanse incision/area with: Keep Dressing Clean & Dry Follow Up Care Please Follow Up With: Erick La DPM When: next week in office, sooner if needed Office: [phone] Test Results: Test results from this visit will be discussed in further detail at your follow-up appointment, if applicable. Discharge Plan Admission Attending Provider: Erick La Primary Care Provider: Braydon Duarte Instructions Print Language: Greenlandic Discharge Orders/Prescriptions Prescriptions: New hydrocodone-acetaminophen 5-300 mg tablet 1 tab PO Q6H PRN (Reason: pain) 3 Days Qty: 12 0RF Continued multivitamin [Daily Multi-Vitamin] Tablet 1 tab PO DAILY Referrals / Follow Up: Braydon Duarte MD [Primary Care Provider] - Disposition Disposition (needs filled in before D/C Order can be placed): Home, Self Care
--- NOTE | 2024-12-23 14:33 | OP.PCM_ITS ---
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, left Post-Operative Diagnosis: Same Surgery/Procedure Performed: Excision of soft tissue mass from left foot 1st metatarsal phalangeal joint cheilectomy left foot product development consultant: Yes Salon Customer Experience Specialist: Tasks completed by team assistant: Opening & closing, Dissecting tissue and Removing tissue Type of Anesthesia: Local and MAC RN Documented Start/Stop Times: Operation Date: 12/23/24 13:00 Case Time Into Pre-Op 12/23/24 11:46 Anesthesia Start 12/23/24 13:00 Into Room 12/23/24 13:00 Out of Pre-Op 12/23/24 13:01 Procedure Start 12/23/24 13:23 Procedure End 12/23/24 14:25 Anesthesia End 12/23/24 14:28 Out of Room 12/23/24 14:28 Into Recovery 12/23/24 14:30 Into Phase II Recovery 12/23/24 15:16 Out of Recovery 12/23/24 15:16 Out of Phase II 12/23/24 16:54 Procedure Start Time: 13:23 Procedure Stop Time: 14:28 Select all DRAINS/GRAFTS/IMPLANTS that apply: None Estimated Blood Loss: 1mL Specimen collected: Yes Description of specimen(s) removed: Excised soft tissue mass from left foot sent to pathology Bone from left 1st metatarsal phalangeal joint sent to pathology Description of surgery: Indications: 34 year old female who developed a soft tissue mass to dorsal left foot at level of the 1st intermetatarsal space. Attempts were made to aspirate the cyst in clinic however no significant fluid was obtained, pathology did not show malignancy. MRI of her left foot was obtained and findings suggested ganglion cyst. Also xrays were obtained of her left foot and no masses were seen on xray, there was noted to be degenerative changes with dorsal exostosis. She does have history of left foot Lapidus bunionectomy several years ago. She is very active. Discussed further options with her. Due to the findings of soft tissue mass to the 1st intermetatarsal space as well as exostosis degenerative changes of 1st metatarsal phalangeal joint she elected to proceed with surgical intervention. The procedures were discussed with her. Reviewed possible benefits vs risks, goals expectations and estimated healing time. The consent forms were reviewed with her and she freely signed them The patient was brought back to the operating room and was placed on the operating room table in the supine position, and was carefully secured to the operating room table with a safety belt around her waist. The patient received 2g of IV Ancef for antibiotic prophylaxis. A well padded pneumatic tourniquet was applied around the patient's left ankle. The patient received MAC anesthesia per the anesthesia team and after the skin was cleansed with 70% Isopropyl alcohol a total of 10mL of 1% Lidocaine plain was given as a locak nerve block around the soft tissue mass of the left 1st intermetatarsal space and to 1st metatarsal phalangeal joint. The patient's left foot was scrubbed, prepped, and draped in the usual aseptic fashion. Further attention was directed to the patient's left foot where there again was noted to be a prominent soft tissue mass to the dorsal 1st intermetatarsal space and extended to the dorsal lateral 1st metatarsal phalangeal joint. There was limited dorsiflexion of the 1st metatarsal phalangeal joint. The patient's left foot was elevated for 3 minutes and the left ankle pneumatic tourniquet was inflated to 250mmHg. Left foot soft tissue mass excision: A skin incision was made overlying the soft tissue mass using a 15 blade. Dissection was completed down to the mass. The mass was encountered and was noted to a lobulated well defined yellow firm soft tissue mass and was not filled with fluid. It appeared to be encapsulated and was localized within the dorsal 50% of the 1st intermetatarsal space. There was no necrosis, no walton tissue and surrounding tissue appeared healthy and viable otherwise, no drainge from the mass. The mass was excised and sent to pathology for further evaluation. It measured approximately 1.5cm x 1.5cm. The surgical site was flushed out with copious amounts of normal saline solution. Left 1st metatarsal phalangeal joint cheilectomy: An incision was made to the dorsal medial aspect of the 1st metatarsal phalangeal joint using a 15 blade. Careful dissection was completed down to the joint capsule and the capsule was incised and partially reflected exposing the dorsal, lateral and medial aspect of the 1st metatarsal head. There was noted to be significant wearing away of cartilage on the dorsal 1st metatarsal head focal cartilage defect dorsally. It was noted the medial 1st metatarsal phalangeal joint was attenuated. There was significant adhesions noted with decreased dorsiflexion of the 1st metatarsal phalangeal joint. Dorsally there was significant impingement with hallux dorsiflexion. The dorsal 1/3 of the 1st metatarsal head was resected using a powered sagittal saw, the resected bone was sent to pathology. The adhesions to the joint were released using a McGlamry metatarsal elevator. There was was now normal range of motion to the 1st metatarsal phalangeal joint. There was smooth normal gliding range of motion of the 1st metatarsal phalangeal joint at this time with normal alignment. There was no popping, clicking or crepitus present. The joint was checked and there was no fragments in the joint and the joint was in good alignment. The surgical site was flushed out with copious amounts of normal saline solution. Tissues were healthy and viable at this time. Closure and dressing of surgical sites: The capsule and subcutaneous tissue layers were reapproximated using?2-0 Vicryl. The attenuated medial capsule was repaired using 2-0 Vicryl. The skin was reapproximated using 3-0 Monocryl. A total of 9mL of 0.5% Bupivacaine plain was given as a local nerve block around the surgical sites to help with post operative pain control. A dressing was applied which consisted of betadine soaked Adaptic, 4x4 gauze, kerlix and del dressing. Proper to dressing application the pneumatic tourniquet was deflated (total tourniquet time was 59 minutes) and there was immediate return of warmth and perfusion to foot with normal temperature and CFT < 2 seconds to all toes. The patient tolerated the above procedures and anesthesia well with no complications. The patient was transported from the operating room to the recovery room with vital signs stable and in good condition. Post operative orders were placed. Post operative instructions were written out. Prescription for Hydrocodone/acetaminophen was prescribed 5mg/325mg PO q 6 hours prn pain. No weightbearing left foot, keep left foot elevated for at least 50 minutes of ever y hour. Keep dressing left foot clean, dry and intact. Patient will follow up with me in 1 week, sooner if needed. Surgical Findings: As noted above Complications Complications: No
--- NOTE | 2024-12-23 14:43 | RAD_ITS ---
EXAM: XR Right Foot Complete, 3 or More Views CLINICAL INDICATION: POST OP PODIATRY SURGERY TECHNIQUE: Frontal, lateral and oblique views of the right foot. COMPARISON: No relevant prior studies available. FINDINGS: BONES/JOINTS: Status post fixation screws through the 1st metatarsal and medial cuboid. Intact hardware. Anatomic position. No acute fracture. No dislocation. SOFT TISSUES: Soft tissue swelling. No radiopaque foreign body. RAD/Foot min 3 Views IMPRESSION: Postoperative changes as above. Reading Location: [id number]
--- NOTE | 2024-12-23 14:43 | RAD_ITS ---
EXAM: XR Right Foot Complete, 3 or More Views CLINICAL INDICATION: POST OP PODIATRY SURGERY TECHNIQUE: Frontal, lateral and oblique views of the right foot. COMPARISON: No relevant prior studies available. FINDINGS: BONES/JOINTS: Status post fixation screws through the 1st metatarsal and medial cuboid. Intact hardware. Anatomic position. No acute fracture. No dislocation. SOFT TISSUES: Soft tissue swelling. No radiopaque foreign body. RAD/Foot min 3 Views IMPRESSION: Postoperative changes as above. Reading Location: [id number]
--- NOTE | 2024-12-23 16:56 | SUR.PHASEII ---
At 1545, This RN phoned [facility] to ask why Rx not delivered, informed that clarification was needed on pt's homegoing prescription and that [facility] pharmacy had texted Dr La. Pt and family updated. / At 1620 when this RN phoned [facility], they had not received clarification. At 1622, this RN spoke with Dr La. states he just replied to text with clarification. Pt and family updated. States they would like to leave and come back to [facility] prescription. / At 1630 this RN called [facility] to verify they rec'd clarification and if they would have it ready by closing that pt wants to leave. They had and stated they would deliver to room in 15 minutes. pt and family updated and stated they wanted to wait for prescription to be delivered to room. / At 1645, prescription not delivered yet. Pt wants to leave. As pt getting in w/c, room phone rings and [facility] was going to deliver to room. However, pt's family member had taken pt's payment info when he went to get the car. Pt understood that [facility] would meet pt at main entrance with Rx. Pt taken to Main entrance, ride was there but Pharm was not. This RN gave number to pt and family to call [facility]. When this RN left pt, she and visitor were on hold with [facility].
--- NOTE | 2024-12-23 16:56 | SUR.PHASEII ---
At 1545, This RN phoned [facility] to ask why Rx not delivered, informed that clarification was needed on pt's homegoing prescription and that [facility] pharmacy had texted Dr La. Pt and family updated. / At 1620 when this RN phoned [facility], they had not received clarification. At 1622, this RN spoke with Dr La. states he just replied to text with clarification. Pt and family updated. States they would like to leave and come back to [facility] pickle maker prescription. / At 1630 this RN called [facility] to verify they rec'd clarification and if they would have it ready by closing that pt wants to leave. They had and stated they would deliver to room in 15 minutes. pt and family updated and stated they wanted to wait for prescription to be delivered to room. / At 1645, prescription not delivered yet. Pt wants to leave. As pt getting in w/c, room phone rings and [facility] was going to deliver to room. However, pt's family member had taken pt's payment info when he went to get the car. Pt understood that [facility] would meet pt at main entrance with Rx. Pt taken to Main entrance, ride was there but Pharm was not. This RN gave number to pt and family to call [facility]. When this RN left pt, she and visitor were on hold with [facility].
--- NOTE | 2024-12-23 18:18 | POSTOPAN2_ITS ---
Anesthesia Postop Eval I Sum Postop Eval Completion status Anesthesia document: Postop Eval 1 completed: Yes Anesthesia Postop Eval I Summary Anesthesia Postop Eval I Summary: Anesthesia Postop Eval I: Assessment Summary Airway patent Yes 12/23/24 14:31 ELECTRIC UTILITY LINEWORKER.MDOT Spontaneous unlabored Yes 12/23/24 14:31 ELECTRIC UTILITY LINEWORKER.MDOT respirations Mental status Awake,Calm 12/23/24 14:31 ELECTRIC UTILITY LINEWORKER.MDOT nausea No 12/23/24 14:31 ELECTRIC UTILITY LINEWORKER.MDOT Vomiting No 12/23/24 14:31 ELECTRIC UTILITY LINEWORKER.MDOT Anesthesia Postop Eval I: Fluid Summary Crystalloid volume administer 900 12/23/24 14:31 ELECTRIC UTILITY LINEWORKER.MDOT (ml) Colloids volume administered ( ml) Blood Product volume administered (ml) Total IV fluid infused 900 12/23/24 14:31 ELECTRIC UTILITY LINEWORKER.MDOT Anesthesia Postop Eval I: Summary Notes Anesthesia Complication No 12/23/24 14:31 ELECTRIC UTILITY LINEWORKER.MDOT Anesthesia Complication Comment: Post-operative progress note Anesthesia: Postop Eval II Evaluation Mental status: Awake Pain Level: 1 nausea: No Vomiting: No
--- NOTE | 2024-12-23 18:18 | POSTOPAN2_ITS ---
Anesthesia Postop Eval I Sum Postop Eval Completion status Anesthesia document: Postop Eval 1 completed: Yes Anesthesia Postop Eval I Summary Anesthesia Postop Eval I Summary: Anesthesia Postop Eval I: Assessment Summary Airway patent Yes 12/23/24 14:31 CAPACITY ANALYST.MDOT Spontaneous unlabored Yes 12/23/24 14:31 CAPACITY ANALYST.MDOT respirations Mental status Awake,Calm 12/23/24 14:31 CAPACITY ANALYST.MDOT nausea No 12/23/24 14:31 CAPACITY ANALYST.MDOT Vomiting No 12/23/24 14:31 CAPACITY ANALYST.MDOT Anesthesia Postop Eval I: Fluid Summary Crystalloid volume administer 900 12/23/24 14:31 CAPACITY ANALYST.MDOT (ml) Colloids volume administered ( ml) Blood Product volume administered (ml) Total IV fluid infused 900 12/23/24 14:31 CAPACITY ANALYST.MDOT Anesthesia Postop Eval I: Summary Notes Anesthesia Complication No 12/23/24 14:31 CAPACITY ANALYST.MDOT Anesthesia Complication Comment: Post-operative progress note Anesthesia: Postop Eval II Evaluation Mental status: Awake Pain Level: 1 nausea: No Vomiting: No
--- NOTE | 2024-12-23 18:18 | PCM.POSTANE2 ---
Anesthesia Postop Eval I Sum Postop Eval Completion status Anesthesia document: Postop Eval 1 completed: Yes Anesthesia Postop Eval I Summary Anesthesia Postop Eval I Summary: Anesthesia Postop Eval I: Assessment Summary Airway patent Yes 12/23/24 14:31 INTERACTIVE MEDIA MARKETING SPECIALIST.MDOT Spontaneous unlabored Yes 12/23/24 14:31 INTERACTIVE MEDIA MARKETING SPECIALIST.MDOT respirations Mental status Awake,Calm 12/23/24 14:31 INTERACTIVE MEDIA MARKETING SPECIALIST.MDOT nausea No 12/23/24 14:31 INTERACTIVE MEDIA MARKETING SPECIALIST.MDOT Vomiting No 12/23/24 14:31 INTERACTIVE MEDIA MARKETING SPECIALIST.MDOT Anesthesia Postop Eval I: Fluid Summary Crystalloid volume administer 900 12/23/24 14:31 INTERACTIVE MEDIA MARKETING SPECIALIST.MDOT (ml) Colloids volume administered ( ml) Blood Product volume administered (ml) Total IV fluid infused 900 12/23/24 14:31 INTERACTIVE MEDIA MARKETING SPECIALIST.MDOT Anesthesia Postop Eval I: Summary Notes Anesthesia Complication No 12/23/24 14:31 INTERACTIVE MEDIA MARKETING SPECIALIST.MDOT Anesthesia Complication Comment: Post-operative progress note Anesthesia: Postop Eval II Evaluation Mental status: Awake Pain Level: 1 nausea: No Vomiting: No
--- NOTE | 2024-12-23 18:18 | PCM.POSTANE2 ---
Anesthesia Postop Eval I Sum Postop Eval Completion status Anesthesia document: Postop Eval 1 completed: Yes Anesthesia Postop Eval I Summary Anesthesia Postop Eval I Summary: Anesthesia Postop Eval I: Assessment Summary Airway patent Yes 12/23/24 14:31 [email or web address] Spontaneous unlabored Yes 12/23/24 14:31 BUTCHER.MDOT respirations Mental status Awake,Calm 12/23/24 14:31 BUTCHER.MDOT nausea No 12/23/24 14:31 BUTCHER.MDOT Vomiting No 12/23/24 14:31 BUTCHER.MDOT Anesthesia Postop Eval I: Fluid Summary Crystalloid volume administer 900 12/23/24 14:31 BUTCHER.MDOT (ml) Colloids volume administered ( ml) Blood Product volume administered (ml) Total IV fluid infused 900 12/23/24 14:31 BUTCHER.MDOT Anesthesia Postop Eval I: Summary Notes Anesthesia Complication No 12/23/24 14:31 BUTCHER.MDOT Anesthesia Complication Comment: Post-operative progress note Anesthesia: Postop Eval II Evaluation Mental status: Awake Pain Level: 1 nausea: No Vomiting: No
== END 2024-12-23 16:55 | disposition home or self-care (01) ==
LOC: SDC 11:23 → AC 11:25
PROVIDERS: Anesthesiology; PCP Family Medicine; Referring Provider Podiatrist; Visit Provider Podiatrist
PROC: (CPT 28289; principal; 2024-12-23 12:45)
DX: R22.42 Localized swelling, mass and lump, left lower limb (principal); M89.8X7 Other specified disorders of bone, ankle and foot; M19.072 Primary osteoarthritis, left ankle and foot
CPT/HCPCS: 28289; 28039; 01480; 73620; 73630; 76000; 81025; 88304; 88307; 88311; J2405

== ENCOUNTER → 2024-12-30 | Outpatient (CLI) | payer OTHER, SELFPAY ==
[2024-12-30 21:36] LABS: Staph aureus DNA By PCR NEGATIVE (Negative)
== END | disposition home or self-care (01) ==
LOC: LABSPEC 17:59
PROVIDERS: PCP Family Medicine; Visit Provider Podiatrist
DX: S99.922A Unspecified injury of left foot, initial encounter (principal); X58.XXXA Exposure to other specified factors, initial encounter
CPT/HCPCS: 87070; 87075; 87205; 87640